=== PATIENT | female | born 1985 | race African-American/Black ===

== ENCOUNTER 2017-01-07 05:30 | Inpatient (IN) | payer OTHER ==
--- NOTE | 2017-01-07 06:27 | HP ---
Past Medical History - Admission Chief Complaint: Labor pain History of Present Illness: 31 yo @ 37 weeks gestation with complicated by short cervix, presents c/o labor pain. Patient was admitted at [facility] for more than a 1 month for cervical imcomprtence; she received a course of steroid. History Source: Patient Limitations to Obtaining History: No Limitations - Past Medical History ...Para: 1 - Past Surgical History Past Surgical History: Yes: None Hx Myomectomy: No Hx Transabdominal Cerclage: No - Smoking History Smoking history: Never smoked Have you smoked in the past 12 months: No - Alcohol/Substance Use Hx Alcohol Use: No History of Substance Use: reports: None - Social History Usual Living Arrangement: Yes: With Spouse History of Recent Travel: No Home Medications - Allergies Allergies/Adverse Reactions: Allergies Allergy/AdvReac Type Severity Reaction Status Date / Time No Known Allergies Allergy Verified 10/07/16 11:08 - Home Medications Home Medications: Ambulatory Orders Vitamins (Sjr) - 1 tab PO DAILY 10/07/16 Family Disease History - Family Disease History Family History: Unremarkable Review of Systems - Review of Systems Constitutional: reports: No Symptoms Eyes: reports: No Symptoms HENT: reports: No Symptoms Neck: reports: No Symptoms Cardiovascular: reports: No Symptoms Respiratory: reports: No Symptoms Gastrointestinal: reports: No Symptoms Genitourinary: reports: Pain Breasts: reports: No Symptoms Reported Musculoskeletal: reports: No Symptoms Integumentary: reports: No Symptoms Neurological: reports: No Symptoms Endocrine: reports: No Symptoms Hematology/Lymphatic: reports: No Symptoms Psychiatric: reports: No Symptoms Pain Intensity: 5 Physical Exam - Maternity Constitutional: Yes: Well Nourished Eyes: Yes: Conjunctiva Clear HENT: Yes: Atraumatic Neck: Yes: Supple Cardiovascular: Yes: Regular Rate and Rhythm Lungs: Clear to auscultation Breast(s): Yes: WNL - Abdominal Exam/OB Number of Fetuses: Single Presentation: Vertex - Vaginal Exam/OB Vaginal Bleediing: No Dilatation (cm): 4 Effacement (%): 90 Amniotic Membrane Status: Intact Station: -2 - Physical Exam Musculoskeletal: Yes: WNL Integumentary: Yes: WNL ...Motor Strength: WNL Psychiatric: Yes: Alert, Oriented Problem List - Problems (1) Pain during labor Code(s): O99.89 - OTH DISEASES AND CONDITIONS COMPL PREG/CHLDBRTH R52 - PAIN, UNSPECIFIED Assessment/Plan Active Labor Personal h/o short cervix Admit to L&D Consider Pitocin augmentation
[2017-01-07] MEDS ORDERED: DEXTROSE 5%-LACTATED RINGERS 1,000 ML IV SCH (06:30)
[2017-01-07] MEDS ORDERED: OXYTOCIN 15 UNITS/ LR 250 ML 250 ML IVPB SCH (06:30)
[2017-01-07 06:38] LABS: BASOPHIL 0.5 % (0-2.0); EOSINOPHIL 0.3 % (0-4.5); MCH 29.1 pg (25.7-33.7); MCHC 32.8 g/dl (32.0-36.0); MEAN CELL VOLUME 88.8 fl (80-96); MEAN PLT VOLUME 10.6 fl (7.5-11.1); NEUTROPHILS 80.1 % (42.8-82.8); PLATELET COUNT 222 K/MM3 (134-434); RDW 14.8 % (11.6-15.6); WHITE BLOOD COUNT 17.9 K/mm3 (4.0-10.0)
[2017-01-07] MEDS ORDERED: AMPICILLIN - 2 GM in SODIUM CHLORIDE 100 ML IVPB ONE (06:50)
[2017-01-07 06:51] LABS: INR 0.98 (0.82-1.09); PROTHROMBIN TIME (PATIENT) 10.8 SEC (9.98-11.88)
[2017-01-07 06:54] LABS: ACTIVATED PTT 30.6 SECONDS (26.9-34.4)
[2017-01-07 06:58] VITALS: BMI 37.5
[2017-01-07 06:58] LABS: CALCIUM 9.5 mg/dL (8.5-10.1); CREATININE 0.6 mg/dL (0.55-1.02)
[2017-01-07 07:13] LABS: HIV 1 & 2 AB NEGATIVE; HIV 1 AGp24 NEGATIVE
[2017-01-07] MEDS ORDERED: AMPICILLIN - 100 ML IVPB ONE (07:50)
[2017-01-07] MEDS ORDERED: BUTORPHANOL TARTRATE 1 MG/ML VIAL IVPUSH PRN (07:52)
[2017-01-07] MEDS ORDERED: PROMETHAZINE HCL 25 MG/1 ML VIAL IVPUSH PRN (07:53)
[2017-01-07] MEDS ORDERED: TUBERCULIN PPD 5 TU/0.1ML SYRINGE (IN PATIENT USE ONLY) ID ONE (10:00)
[2017-01-07] MEDS ORDERED: WITCH HAZEL 50% (TUCKS) 40 PAD/JAR PAD TP PRN (11:29)
[2017-01-07] MEDS ORDERED: BENZOCAINE 20% 57 GM BOTTLE TP PRN (11:29)
[2017-01-07] MEDS ORDERED: BENZOCAINE 28 GM HEMORRHOIDAL OINTMENT TP PRN (11:29)
[2017-01-07] MEDS ORDERED: METHYLERGONOVINE MALEATE 0.2 MG/1 ML AMP IM PRN (11:29)
[2017-01-07] MEDS ORDERED: BISACODYL 10 MG SUPP.RECT RC PRN (11:29)
[2017-01-07] MEDS: D5W-LR W/ 20 UNITS OXYTOCIN 1,000 ML IV SCH (11:30)
--- NOTE | 2017-01-07 11:34 | PN ---
Delivery - Delivery Vaginal Delivery: Spontaneous Type of Anesthesia: Local Episiotomy/Laceration: None EBL (cc): 250 Delivery, Single - Feeding Plan Initial Plan: Elected not to breastfeed exclusively throughout hospitalization Remarks - Remarks Remarks: Normal spontaneous vaginal delivery of a live boy over intact perineum. Nose / oropharynx suctioned @ perineum. Nuchal cord x 1 clamped and cut. Placenta expelled spontaneously intact.
--- NOTE | 2017-01-07 11:37 | DS ---
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 Vital Signs: Vital Signs Temperature 98.0 F 01/07/17 10:00 Pulse Rate 77 01/07/17 10:00 Respiratory Rate 20 01/07/17 10:00 Blood Pressure 138/79 01/07/17 10:00 O2 Sat by Pulse Oximetry (%) Constitutional: Yes: Well Nourished Eyes: Yes: Conjunctiva Clear HENT: Yes: Atraumatic Neck: Yes: Supple, Trachea Midline Cardiovascular: Yes: Regular Rate and Rhythm Respiratory: Yes: Regular, CTA Bilaterally Gastrointestinal: Yes: Normal Bowel Sounds Vaginal Exam: Yes: Normal Cervix: Yes: Normal Uterus: Yes: Normal, Firm ....Post : Yes: Uterus firm, Moderate lochia serosa Breast(s): Yes: WNL Musculoskeletal: Yes: WNL Extremities: Yes: WNL Neurological: Yes: Alert, Oriented ...Motor Strength: WNL Psychiatric: Yes: Alert, Oriented Labs: CBC, BMP 01/07/17 06:25 01/07/17 06:25 Delivery - Delivery Vaginal Delivery: Spontaneous Type of Anesthesia: Local Episiotomy/Laceration: None EBL (cc): 250 Delivery, Single - [place] Feeding Plan Initial Plan: Elected not to breastfeed exclusively throughout hospitalization Discharge Summary Reason For Visit: LABOR Current Active Problems Pain during labor (Acute) Status post normal vaginal delivery (Acute) Procedures: Principal: Normal spontaneous vaginal delivery Hospital Course: Routine care Condition: Good - Instructions Diet, Activity, Other Instructions: Regular diet No douching, no intercourse x 6 weeks. F/U with MD in 6 weeks. Referrals: Diana Koenig MD [Staff Physician] - Disposition: HOME - Home Medications Comprehensive Discharge Medication List: Ambulatory Orders Vit Calc,Iron,Folic [ Vitamins] 1 each PO DAILY 01/07/17
[2017-01-07] MEDS ORDERED: AMPICILLIN - 1G/100 ML IVPB SCH (11:54)
[2017-01-07] MEDS: FERROUS SO4 325 MG TABLET (FP) PO SCH ×2 (13:31→17:04)
[2017-01-07] MEDS: ACETAMINOPHEN 325 MG TABLET (FP) PO PRN ×2 (14:39→20:34)
[2017-01-07] MEDS: IBUPROFEN 600 MG TABLET (FP) PO PRN ×2 (14:39→20:35)
[2017-01-08] MEDS: ACETAMINOPHEN 325 MG TABLET (FP) PO PRN (01:24)
[2017-01-08] MEDS: IBUPROFEN 600 MG TABLET (FP) PO PRN (01:25)
[2017-01-08] MEDS: FERROUS SO4 325 MG TABLET (FP) PO SCH ×3 (08:09→17:25)
[2017-01-08 08:45] LABS: BASOPHIL 0.5 % (0-2.0); EOSINOPHIL 2.1 % (0-4.5); MCHC 32.3 g/dl (32.0-36.0); MEAN CELL VOLUME 89.8 fl (80-96); MEAN PLT VOLUME 10.2 fl (7.5-11.1); NEUTROPHILS 67.2 % (42.8-82.8); PLATELET COUNT 225 K/MM3 (134-434); RDW 15.2 % (11.6-15.6); WHITE BLOOD COUNT 15.3 K/mm3 (4.0-10.0)
[2017-01-08] MEDS: PRENATAL VITAMINS W/ FOLIC ACID TABLET (FP) PO SCH (09:58)
[2017-01-08] MEDS ORDERED: DIPHTH,PERTUSS(ACELL),TET 0.5 ML DISP.SYRIN IM ONE (10:00)
--- NOTE | 2017-01-08 13:19 | PN ---
Post Progress Note - Subjective Subjective: 31 yo Para 3 status post vaginal delivery seen and evaluated. No complaints. Type of Delivery: Vital Signs: Vital Signs Temperature 98.1 F 01/08/17 10:00 Pulse Rate 77 01/08/17 10:00 Respiratory Rate 18 01/08/17 10:00 Blood Pressure 123/84 01/08/17 10:00 O2 Sat by Pulse Oximetry (%) 100 01/07/17 13:00 Breast Exam: Yes: Soft (No engorgement) Uterus: Yes: Fundus Firm Abdomen/GI: Yes: Abdomen soft, Tolerating PO Lochia: Yes: Rubra Lochia, amount: Moderate Extremities: Yes: Calves non-tender Perineum: Yes: Intact Activity: Ambulating - Labs Labs: CBC WBC 15.3 K/mm3 (4.0-10.0) H 01/08/17 08:10 RBC 4.02 M/mm3 (3.60-5.2) 01/08/17 08:10 Hgb 11.6 GM/dL (10.7-15.3) 01/08/17 08:10 Hct 36.0 % (32.4-45.2) 01/08/17 08:10 MCV 89.8 fl (80-96) 01/08/17 08:10 MCHC 32.3 g/dl (32.0-36.0) 01/08/17 08:10 RDW 15.2 % (11.6-15.6) 01/08/17 08:10 Plt Count 225 K/MM3 (134-434) 01/08/17 08:10 MPV 10.2 fl (7.5-11.1) 01/08/17 08:10 Neutrophils % 67.2 % (42.8-82.8) 01/08/17 08:10 Lymphocytes % 19.3 % (8-40) D 01/08/17 08:10 Monocytes % 10.9 % (3.8-10.2) H 01/08/17 08:10 Eosinophils % 2.1 % (0-4.5) D 01/08/17 08:10 Basophils % 0.5 % (0-2.0) 01/08/17 08:10 Problem List - Problems (1) Pain during labor Code(s): O99.89 - OTH DISEASES AND CONDITIONS COMPL PREG/CHLDBRTH R52 - PAIN, UNSPECIFIED Assessment/Plan Status post vaginal delivery Stable Routine care D/C home in am
[2017-01-08] MEDS: D5W-LR W/ 20 UNITS OXYTOCIN 1,000 ML IV SCH (19:16)
[2017-01-08] MEDS ORDERED: SENNOSIDES/DOCUSATE COMBO (SENNA PLUS) TABLET (UD) PO PRN (22:00)
[2017-01-09] MEDS: PRENATAL VITAMINS W/ FOLIC ACID TABLET (FP) PO SCH (09:12)
[2017-01-09] MEDS: FERROUS SO4 325 MG TABLET (FP) PO SCH ×2 (09:12→11:46)
[2017-01-09 11:28] VITALS: BP 123/90; PULSE 84; TEMP 98.6
== END 2017-01-09 14:00 | disposition home or self-care (01) | DRG 560 ==
LOC: JLDR 05:30 → J3W 13:10
PROVIDERS: ADMIT Obstetrics & Gynecology; ATTEND Obstetrics & Gynecology
PROC: 10E0XZZ Delivery of Products of Conception, External Approach (ICD-10-PCS; principal; 2017-01-07)
DX: O80 Encounter for full-term uncomplicated delivery (principal); Z3A.37 37 weeks gestation of pregnancy; Z37.0 Single live birth
CPT/HCPCS: 36415; 59025; 59409; 80048; 85025; 85610; 85730; 86593; 86850; 86900; 86901; 87389

== ENCOUNTER 2017-02-28 15:45 | Emergency (ER) | payer OTHER ==
[2017-02-28 15:50] VITALS: BP 123/82; PULSE 79; TEMP 97.9; BMI 32.9
[2017-02-28] MEDS ORDERED: SODIUM CHLORIDE 0.9% 1000 ML INFUS.BAG IV ONE (16:27)
[2017-02-28] MEDS ORDERED: RANITIDINE HCL 150 MG TABLET (FP) PO ONE (16:27)
[2017-02-28] MEDS ORDERED: RANITIDINE HCL 150 MG TABLET (FP) ONE (16:31)
[2017-02-28] MEDS ORDERED: DEXAMETHASONE LIQUID 0.5 MG/5 ML 240 ML BULK BOTTLE PO ONE (16:33)
--- NOTE | 2017-02-28 16:33 | PDOC ---
History of Present Illness - General Chief Complaint: Allergic Reaction Stated Complaint: ALLERGIC RXN Time Seen by Provider: 02/28/17 16:01 - History of Present Illness Initial Comments: 02/28/17 16:28 CHIEF COMPLAINT: HISTORY OF PRESENT ILLNESS: 31 yo F with no PMH presents to [facility] with "allergic reaction" since last night. Patient reports being at a friend's house and seeing mosquitos last night and felt itchiness to her shoulders when she went home, but after she took a shower it became much worse. She states that she does not remember eating anything different but does note a little swelling to her right lip. She took one Benadryl last night which made her drowsy, and today she took a Claritin. No recent travel or sick contacts. PAST MEDICAL HISTORY: Denies past medical history FAMILY HISTORY: Denies SOCIAL HISTORY: Denies tobacco, alcohol, illicit drug use. SURGICAL HISTORY: Denies ALLERGIES: mushroom REVIEW OF SYSTEMS General/Constitutional: Denies fever or chills. Denies weakness, weight change. HEENT: "My lip is swelling a little." Denies change in vision. Denies ear pain or discharge. Cardiovascular: Denies chest pain or shortness of breath. Respiratory: Denies cough, wheezing, or hemoptysis. Gastrointestinal: Denies nausea, vomiting, diarrhea or constipation. Denies rectal bleeding. Genitourinary: Denies dysuria, frequency, or change in urination. Musculoskeletal: Denies joint or muscle swelling or pain. Denies neck or back pain. Skin and breasts: "I have hives." Denies rash or easy bruising. PHYSICAL EXAM General Appearance: Well-appearing, appropriately dressed. No apparent distress. HEENT: Mild swelling to R lower lip, no swelling to tongue, throat, tonsils. EOMI, PERRLA, normal ENT inspection, normal voice, TMs normal, pharynx normal. No conjunctival pallor. No photophobia, scleral icterus. Neck: Supple. Trachea midline. No tenderness, rigidity, carotid bruit, stridor , lymphadenopathy, or thyromegaly. Respiratory/Chest: Lungs CTAB. No shortness of breath, chest tenderness, respiratory distress, accessory muscle use. No crackles, rales, rhonchi, stridor , wheezing, dullness Cardiovascular: RRR. S1, S2. Musculoskeletal/Extremities: Normal inspection. FROM of all extremities, normal capillary refill. Pelvis Stable. No CVA tenderness. No tenderness to extremities, pedal edema, swelling, erythema or deformity. Integumentary: Generalized macular rash across entire mid back, satellite lesions to upper back and arms b/l. Appropriate color, dry, warm. 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 Fully oriented, alert. Appropriate mood/affect. Motor strength 5/5. No appreciable EOM palsy, facial droop or sensory deficit. 02/28/17 16:34 Past History - Past Medical History Allergies/Adverse Reactions: Allergies Allergy/AdvReac Type Severity Reaction Status Date / Time mushroom Allergy Verified 02/28/17 15:46 Home Medications: Ambulatory Orders Vit Calc,Iron,Folic [ Vitamins] 1 each PO DAILY 01/07/17 Asthma: No Cancer: No Cardiac Disorders: No Diabetes: No HTN: No Seizures: No Thyroid Disease: No Other medical history: none - Psycho/Social/Smoking Cessation Hx Anxiety: No Suicidal Ideation: No Smoking History: Never smoked Have you smoked in the past 12 months: No Information on smoking cessation initiated: No Hx Alcohol Use: No Drug/Substance Use Hx: No Substance Use Type: None Hx Substance Use Treatment: No *Physical Exam - Vital Signs Last Vital Signs Temp Pulse Resp BP Pulse Ox 97.9 F 79 18 123/82 100 02/28/17 15:46 02/28/17 15:46 02/28/17 15:46 02/28/17 15:46 02/28/17 15:46 Medical Decision Making - Medical Decision Making 02/28/17 16:35 31 yo F with no PMH presents to [facility] with hives. 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 Advised patient of signs and symptoms for return to ED. Patient verbalized understanding and agrees to plan. *DC/Admit/Observation/Transfer Diagnosis at time of Disposition: Hives - Discharge Dispostion Disposition: HOME Condition at time of disposition: Stable Admit: No - Referrals Referrals: Brielle Mas [Primary Care Provider] - Radha Infante MD [Staff Physician] - - Patient Instructions Printed Discharge Instructions: DI for Hives Additional Instructions: You may continue taking Claritin as needed for itching, use medication sparingly. If you experience any difficulty breathing, swelling to your throat , tongue, lips, or mouth, or you develop fever, nausea, vomiting, diarrhea, or any new or worsening symptoms, please return to the ER.
[2017-02-28] MEDS ORDERED: DEXAMETHASONE SOD PHOSPHATE 4 MG/1 ML VIAL ONE (16:38)
== END 2017-02-28 17:48 | disposition home or self-care (01) ==
LOC: JERFT 15:45
DX: L50.9 Urticaria, unspecified (principal)
CPT/HCPCS: 99281-25

== ENCOUNTER → 2023-10-12 | Day surgery (SDC) | payer OTHER | END | disposition home or self-care (01) | LOC: FRADUS-SUR 08:42 | PROVIDERS: ATTEND Obstetrics & Gynecology | PROC: 0HBT3ZX Excision of Right Breast, Percutaneous Approach, Diagnostic (ICD-10-PCS; principal; 2023-10-12) | DX: N60.11 Diffuse cystic mastopathy of right breast (principal); N60.31 Fibrosclerosis of right breast; N60.81 Other benign mammary dysplasias of right breast; N63.10 Unspecified lump in the right breast, unspecified quadrant | CPT/HCPCS: 19085; 77065-TC; 88305-TC; A4648 ==